=== PATIENT | female | born 1985 | race African-American/Black ===

== ENCOUNTER 2017-02-19 13:33 | Emergency (ER) | payer OTHER ==
[2017-02-19 13:40] VITALS: BMI 28.3
--- NOTE | 2017-02-19 14:39 | PDOC ---
History of Present Illness - General History Source: Patient Exam Limitations: No Limitations - History of Present Illness Initial Comments: 02/19/17 16:22 The patient is a 31 year old female with no significant past medical history, who presents to the ED with worsening superpubic pain that radiates to her left flank. Patient states she has been experiencing this for one week but not as severe as today. She describes the pain as 10/10 in severity and stabbing. Patient also complains of urinary urgency, frequency, and dysuria secondary to the left flank pain. Denies fever, nausea, vomiting. Denies vaginal bleeding or discharge. LMP: One month ago. Past surgical hx: Tubal Ligation and <Good Ramirez - Last Filed: 02/19/17 17:59> <Nikole iMnor - Last Filed: 02/19/17 18:45> - General Chief Complaint: Pain Stated Complaint: NAUSEA, SIDE PAIN, DIZZINESS Time Seen by Provider: 02/19/17 14:35 Past History <Good Ramirez - Last Filed: 02/19/17 17:59> - Past Medical History Other medical history: none - Psycho/Social/Smoking Cessation Hx Anxiety: No Suicidal Ideation: No Smoking History: Current every day smoker Have you smoked in the past 12 months: Yes Number of Cigarettes Smoked Daily: 2 Information on smoking cessation initiated: Yes 'Breaking Loose' booklet given: 02/19/17 Hx Alcohol Use: No Drug/Substance Use Hx: No Substance Use Type: None <Nikole Minor - Last Filed: 02/19/17 18:45> - Past Medical History Allergies/Adverse Reactions: Allergies Allergy/AdvReac Type Severity Reaction Status Date / Time No Known Allergies Allergy Verified 02/19/17 13:37 Home Medications: Ambulatory Orders NK [No Known Home Medication] 02/19/17 Review of Systems - Review of Systems Able to Perform ROS?: Yes Comments:: 02/19/17 16:22 GENERAL/CONSTITUTIONAL: No fever or chills. No weakness. HEAD, EYES, EARS, NOSE AND THROAT: No change in vision. No ear pain or discharge. No sore throat. CARDIOVASCULAR: No chest pain or shortness of breath. RESPIRATORY: No cough, wheezing, or hemoptysis. GASTROINTESTINAL: No nausea, vomiting, diarrhea or constipation. GENITOURINARY: + dysuria, frequency, urgency. + left flank pain. MUSCULOSKELETAL: No joint or muscle swelling or pain. No neck or back pain. SKIN: No rash NEUROLOGIC: No headache, vertigo, loss of consciousness, or change in strength/ sensation. ENDOCRINE: No increased thirst. No abnormal weight change. HEMATOLOGIC/LYMPHATIC: No anemia, easy bleeding, or history of blood clots. ALLERGIC/IMMUNOLOGIC: No hives or skin allergy. <Good Ramirez - Last Filed: 02/19/17 17:59> *Physical Exam - Vital Signs Last Vital Signs Temp Pulse Resp BP Pulse Ox 98.4 F 70 18 119/64 100 02/19/17 13:38 02/19/17 13:38 02/19/17 13:38 02/19/17 13:38 02/19/17 13:38 - Physical Exam Comments: 02/19/17 16:23 GENERAL: Awake, alert, and fully oriented, in no acute distress HEAD: No signs of trauma EYES: PERRLA, EOMI, sclera anicteric, conjunctiva clear ENT: Auricles normal inspection, hearing grossly normal, nares patent, oropharynx clear without exudates. Moist mucosa NECK: Normal ROM, supple, no lymphadenopathy, JVD, or masses LUNGS: Breath sounds equal, clear to auscultation bilaterally. No wheezes, and no crackles HEART: Regular rate and rhythm, normal S1 and S2, no murmurs, rubs or gallops ABDOMEN: Superpubic tenderness, normoactive bowel sounds. No CVA tenderness. No guarding, no rebound. No masses EXTREMITIES: Normal range of motion, no edema. No clubbing or cyanosis. No cords, erythema, or tenderness NEUROLOGICAL: Cranial nerves II through XII grossly intact. Normal speech, normal gait SKIN: Warm, Dry, normal turgor, no rashes or lesions noted. PELVIC EXAM: Moderate amount of white discharge. No active discharge from the os. No CMT no adnexal tenderness. <Good Ramirez - Last Filed: 02/19/17 17:59> - Vital Signs Last Vital Signs Temp Pulse Resp BP Pulse Ox 98.4 F 70 18 119/64 100 02/19/17 13:38 02/19/17 13:38 02/19/17 13:38 02/19/17 13:38 02/19/17 13:38 <Nikole Minor - Last Filed: 02/19/17 18:45> ED Treatment Course - LABORATORY CBC & Chemistry Diagram: 02/19/17 15:30 02/19/17 15:30 - ADDITIONAL ORDERS Additional order review: Laboratory Results 02/19/17 15:15 Urine HCG, Qual Negative - Medications Given in the ED: ED Medications Discontinued Medications Generic Name Dose Route Start Last Admin Trade Name Rory PRN Reason Stop Dose Admin Ketorolac Tromethamine 30 mg 02/19/17 14:56 02/19/17 16:16 Toradol Injection - IVPUSH 02/19/17 14:57 30 mg ONCE ONE Administration <Good Ramirez - Last Filed: 02/19/17 17:59> - LABORATORY CBC & Chemistry Diagram: 02/19/17 15:30 02/19/17 15:30 <Nikole Minor - Last Filed: 02/19/17 18:45> Medical Decision Making - Medical Decision Making 02/19/17 18:26 Patient presents to the ED complaining of suprapubic pain, dysuria, urgency and frequency. UA and pelvic exam are unremarkable, but patient is still complaining of suprapubic and left flank pain. 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 I have told the patient that since we have not identified the cause of her symptoms, she must return to the ED for fever, worsening pain, pain with fever. <Nikole Minor - Last Filed: 02/19/17 18:45> *DC/Admit/Observation/Transfer - Attestations Scribe Attestion: 02/19/17 16:23 Documentation prepared by Good Ramirez, acting as medical territory manager for Nikole Minor MD, MD/DO. <Good Ramirez - Last Filed: 02/19/17 17:59> - Discharge Dispostion Admit: No <Nikole Minor - Last Filed: 02/19/17 18:45> Diagnosis at time of Disposition: Pelvic pain - Referrals Referrals: Nikole Mar MD [Primary Care Provider] - - Patient Instructions Printed Discharge Instructions: DI for Pelvic Pain Additional Instructions: We did not find the cause for your pain today. If your pain worsens or continues, you must return to the ED. Return to the ED for severe pain, pain with fever ,severe nausea or vomiting. - Post Discharge Activity Work/School Note: Back to Work
[2017-02-19] MEDS ORDERED: KETOROLAC TROMETHAMINE 30 MG/1 ML VIAL IVPUSH ONE (14:56)
[2017-02-19] MEDS ORDERED: KETOROLAC TROMETHAMINE 30 MG/1 ML VIAL ONE (15:28)
[2017-02-19 16:52] LABS: BASOPHIL 0.5 % (0-2.0); EOSINOPHIL 2.3 % (0-4.5); MCH 26.5 pg (25.7-33.7); MCHC 32.3 g/dl (32.0-36.0); MEAN PLT VOLUME 9.1 fl (7.5-11.1); RDW 19.9 % (11.6-15.6); WHITE BLOOD COUNT 5.4 K/mm3 (4.0-10.0)
[2017-02-19 17:01] LABS: ALBUMIN 3.7 g/dl (3.4-5.0); ANION GAP 10 (8-16); CALCIUM 8.6 mg/dL (8.5-10.1); CO2 23 mmol/L (21-32); GLUCOSE,RANDOM 59 mg/dL (74-106)
[2017-02-19 17:06] LABS: ALK PHOS 57 U/L (45-117); BILIRUBIN,TOTAL 0.3 mg/dL (0.2-1.0); CREATININE 0.6 mg/dL (0.55-1.02); SGPT/ALT 21 U/L (12-78); TOT PROT 7.1 g/dl (6.4-8.2)
[2017-02-19 17:17] LABS: SGOT/AST 21 U/L (15-37)
[2017-02-19 17:51] LABS: URINE APPEARANCE CLEAR; URINE BILIRUBIN NEGATIVE (NEGATIVE); URINE BLOOD NEGATIVE (NEGATIVE); URINE COLOR STRAW; URINE GLUCOSE (UA) NEGATIVE (NEGATIVE); URINE KETONE NEGATIVE (NEGATIVE); URINE LEUK ESTERASE NEGATIVE (NEGATIVE); URINE NITRITE NEGATIVE (NEGATIVE); URINE PROTEIN NEGATIVE (NEGATIVE); URINE UROBILINOGEN NEGATIVE E.U./dl (0.2-1.0)
[2017-02-19 18:51] VITALS: BP 117/64; PULSE 80; TEMP 98.6
[2017-02-19 20:27] LABS: PLATELET COUNT 269 K/MM3 (134-434); PLATELET ESTIMATE ADEQUATE (NORMAL)
[2017-02-19 20:28] LABS: ANISOCYTOSIS 1+
== END 2017-02-19 18:49 | disposition home or self-care (01) ==
LOC: JER 13:33
PROC: 3E0333Z Introduction of Anti-inflammatory into Peripheral Vein, Percutaneous Approach (ICD-10-PCS; principal; 2017-02-19)
DX: R10.2 Pelvic and perineal pain (principal)
CPT/HCPCS: 36415; 80053; 81003; 84703; 85025; 96374; 99283-25